=== PATIENT | female | born 1940 | race Caucasian/White ===

== ENCOUNTER 2016-09-07 14:06 | Emergency (ER) | payer MEDICARE, OTHER ==
[~2016-09-07] VITALS: Ht 154.9 cm; Wt 66.0 kg
[~2016-09-07 14:06] MED LIST: CALC-375; CHOL10009; CIPR500T4 PO; ESOM40CA PO; LORA-441; NAPR-260 PO; NORT10SO PO; OMEG-135 PO; [UNRECOGNIZED DRUG - CODE]; tribenzor PO
[2016-09-07 14:20] VITALS: Ht 154.9 cm; Wt 66.0 kg
[2016-09-07] MEDS ORDERED: ERYTOPOI BOTH EYES (14:50)
[2016-09-07] MEDS ORDERED: OSLT75C PO (14:50)
[2016-09-07] MEDS ORDERED: GUAI-637 PO (14:51)
[2016-09-07] MEDS ORDERED: ACET325T33 PO (14:51)
--- NOTE | 2016-09-07 15:40 | ERD ---
ER Documentation Chief Complaint Date/Time DATE: 09/07/16 TIME: 15:[address]GH AND [address] X1 WEEK HPI Patient is a 76-year-old female complaining of flulike symptoms for 4 days associated with dry cough, generalized body ache, sore throat and right eye pain. Patient's also states that she felt she had a fever but was not able to take her temperature. Patient denies any headache, shortness of breath, wheezing, runny nose or blurred vision. Slight discomfort upon swallowing. Patient has a history of hypercholesterolemia, migraine and prediabetes. Denies any recent sick contact. Did not take a flu shot this season ROS All systems reviewed and are negative except as per history of present illness. Medications Home Meds Active Scripts Acetaminophen* (Tylenol*) 325 Mg Tablet, 2 TAB PO Q6 Y for PAIN AND OR ELEVATED TEMP, #20 TAB Prov:SHIRA TORIBIO 09/07/16 Guaifenesin* (Robitussin*) 100 Mg/5 Ml Syrup, 100 MG PO Q4H Y for COUGH, #100 ML Prov:SHIRA TORIBIO 09/07/16 Erythromycin* (Erythromycin* Ophthalmic) 1 Applic Oint, 1 APPLIC BOTH EYES QID for 7 Days, EA Prov:SHIRA TORIBIO 09/07/16 Oseltamivir Phosphate* (Tamiflu*) 75 Mg Capsule, 75 MG PO BID for 5 Days, CAP Prov:SHIRA TORIBIO 09/07/16 Ciprofloxacin Hcl* (Ciprofloxacin Hcl*) 500 Mg Tablet, 500 MG PO BID for 7 Days , TAB Prov:SALINAS PALMER PA-C 04/17/16 Naproxen* (Naprosyn*) 500 Mg Tablet, 500 MG PO BID Y for PAIN AND/OR INFLAMMATION, #30 TAB Prov:SALINAS PALMER PA-C 04/17/16 Reported Medications Nortriptyline Hcl* (Nortriptyline Hcl*) 10 Mg/5 Ml Solution, 10 MG PO HS 04/03/13 [tribenzor] 40 MG No Conflict Check, PO DAILY 10/28/12 Esomeprazole Mag Trihydrate (Nexium) 40 Mg Capsule.dr, PO DAILY 10/28/12 Fish Oil* (Fish Oil*) 1,000 Mg Cap, PO BID 10/28/12 Multivitamins W-Iron (Multivitamin W/Iron) 1 Tab Tablet 03/15/10 Calcium Citrate/Vitamin D3 (Citracal + D Caplet) 1 Tab Tablet 03/15/10 Cholecalciferol (Vitamin D3) 1,000 Unit Capsule 03/15/10 Lorazepam* (Ativan*) 0.5 Mg Tablet 03/15/10 Allergies Allergies: Coded Allergies: No Known Drug Allergy (Verified Allergy, Unknown, 03/25/14) PMhx/Soc History of Surgery: Yes (R HIP, B SHOULDERS, SINUS, HYSTERECTOMY) Anesthesia Reaction: No Hx Neurological Disorder: No Hx Respiratory Disorders: Yes (SLEEP APNEA) Hx Cardiac Disorders: Yes (HTN, HDL) Hx Psychiatric Problems: Yes (ANXIETY) Hx Miscellaneous Medical Probl: Yes (OSTEOPOROSIS) Hx Alcohol Use: No Hx Substance Use: No Hx Tobacco Use: No Physical Exam Vitals Vital Signs Date Time Temp Pulse Resp B/P Pulse Ox O2 Delivery O2 Flow Rate FiO2 09/07/16 14:20 98.7 82 16 130/68 98 Physical Exam Physical Exam CONST: Well-developed, well-nourished, in no acute distress. Nontoxic in appearance. HEENT: Atraumatic. Erythematous conjunctiva on the right eye. EOM intact. TM intact. External ear is normal. Clear oropharnyx without erythema. No Uvular deviation. Moist mucous membranes. Supple neck. No meningismus. No submandibular induration. RESP: Clear to auscultation bilaterally. No wheezing. CARDIO: Regular rate and rhythm, no murmurs. ABD: Soft, non tender, non distended. Normal bowel sounds. No McBurney's point tenderness. No guarding or rigidity. No peritoneal signs. SKIN: No petechiae or rashes. BACK: No midline or flank tenderness. EXT: No cyanosis or edema. Distal pulses equal and bilateral. NEURO: Awake and alert, appropriate for age Procedures/[facility]M EMERGENCY DEPARTMENT COURSE/MEDICAL DECISION MAKING This is a 76-year-old female who comes to the emergency room secondary to complaints of flulike symptoms for 4 days. (dry cough, sore throat, general malaise body aches, right eye pain). Her lungs are clear and patient is afebrile upon assessment. Patient also denies having a flu shot this season. My primary diagnosis is flu-like symptoms. Secondary diagnosis are right eye conjunctivitis Differential diagnoses considered, included but not limited to pneumonia, bronchitis, upper respiratory infection, asthma, pharyngitis, peritonsillar abscess, otitis media, otitis externa. Pt is hemodynamically stable upon reassessment. The patient was discharged for outpatient management with a prescription for Tamiflu, Robitussin, Tylenol and erythromycin ophthalmic. The patient was advised to followup with their PMD in 1-2 days and to return to the Emergency Department if there are any new or worsening symptoms. The patient understood and agreed with the diagnosis, treatment and plan. Patient is stable for discharge at this time. Departure Diagnosis: Primary Impression: Flu-like symptoms Additional Impression: Conjunctivitis Conjunctivitis type: acute Acute conjunctivitis type: unspecified Laterality: right Qualified Code: H10.31 - Acute conjunctivitis of right eye , unspecified acute conjunctivitis type Condition: Stable Patient Instructions: What Is Conjunctivitis?, Influenza (Adult) Additional Instructions: Follow-up with your primary care physician in 1-2 days. Return to the emergency department immediately should you have any new or worsening symptoms, uncontrolled fevers, or other unexplained symptoms. Take all medications as directed. SHIRA TORIBIO Sep 07, 2016 15:40
== END 2016-09-08 14:00 | disposition home or self-care (01) ==
LOC: E/R 14:06
DX: R05 Cough (principal); J02.9 Acute pharyngitis, unspecified; R52 Pain, unspecified; H10.31 Unspecified acute conjunctivitis, right eye; I10 Essential (primary) hypertension
CPT/HCPCS: 99284

== ENCOUNTER 2017-04-30 14:46 | Emergency (ER) | payer MEDICARE, OTHER ==
[~2017-04-30] VITALS: Ht 152.4 cm; Wt 64.0 kg
[~2017-04-30 14:46] MED LIST changes: +ACET325T33 PO; +ERYTOPOI BOTH EYES; +GUAI-637 PO; +OSLT75C PO
[2017-04-30 14:49] VITALS: Ht 152.4 cm; Wt 64.0 kg
--- NOTE | 2017-04-30 16:11 | ERD ---
ER Documentation Chief Complaint Chief Complaint HEADACHE X 5 DAYS WITH INTERMITTENT DIZZINESS AND ELEVATED BP HPI The patient is a 77-year-old female, presenting to the ER because of intermittent headache for the last 5 days, associated with elevated blood pressure. She has similar symptoms previously, denies blurred vision, facial pain, neck pain, chest pain, dyspnea, abdominal pain, vomiting, dysuria, diarrhea. She does not smoke nor drink Past medical history: Hypertension, dyslipidemia Past surgical history: Sinus surgery ROS All systems reviewed and are negative except as per history of present illness. Medications Home Meds Active Scripts Acetaminophen* (Acetaminophen*) 650 Mg Tablet, 650 MG PO Q6H Y for PAIN AND OR ELEVATED TEMP, #30 TAB Prov:OLU AGUILAR MD 04/30/17 Acetaminophen* (Tylenol*) 325 Mg Tablet, 2 TAB PO Q6 Y for PAIN AND OR ELEVATED TEMP, #20 TAB Prov:SHIRA TORIBIO 09/07/16 Guaifenesin* (Robitussin*) 100 Mg/5 Ml Syrup, 100 MG PO Q4H Y for COUGH, #100 ML Prov:SHIRA TORIBIO 09/07/16 Erythromycin* (Erythromycin* Ophthalmic) 1 Applic Oint, 1 APPLIC BOTH EYES QID for 7 Days, EA Prov:SHIRA TORIBIO 09/07/16 Oseltamivir Phosphate* (Tamiflu*) 75 Mg Capsule, 75 MG PO BID for 5 Days, CAP Prov:SHIRA TORIBIO 09/07/16 Ciprofloxacin Hcl* (Ciprofloxacin Hcl*) 500 Mg Tablet, 500 MG PO BID for 7 Days , TAB Prov:SALINAS PALMER PA-C 04/17/16 Naproxen* (Naprosyn*) 500 Mg Tablet, 500 MG PO BID Y for PAIN AND/OR INFLAMMATION, #30 TAB Prov:SALINAS PALMER PA-C 04/17/16 Reported Medications Nortriptyline Hcl* (Nortriptyline Hcl*) 10 Mg/5 Ml Solution, 10 MG PO HS 04/03/13 [tribenzor] 40 MG No Conflict Check, PO DAILY 10/28/12 Esomeprazole Mag Trihydrate (Nexium) 40 Mg Capsule.dr, PO DAILY 10/28/12 Fish Oil* (Fish Oil*) 1,000 Mg Cap, PO BID 10/28/12 Multivitamins W-Iron (Multivitamin W/Iron) 1 Tab Tablet 03/15/10 Calcium Citrate/Vitamin D3 (Citracal + D Caplet) 1 Tab Tablet 03/15/10 Cholecalciferol (Vitamin D3) 1,000 Unit Capsule 03/15/10 Lorazepam* (Ativan*) 0.5 Mg Tablet 03/15/10 Allergies Allergies: Coded Allergies: No Known Drug Allergy (Verified Allergy, Unknown, 03/25/14) PMhx/Soc History of Surgery: Yes (R HIP, B SHOULDERS, SINUS, HYSTERECTOMY) Anesthesia Reaction: No Hx Neurological Disorder: No Hx Respiratory Disorders: Yes (SLEEP APNEA) Hx Cardiac Disorders: Yes (HTN, HDL) Hx Psychiatric Problems: Yes (ANXIETY) Hx Miscellaneous Medical Probl: Yes (OSTEOPOROSIS) Hx Alcohol Use: No Hx Substance Use: No Hx Tobacco Use: No Physical Exam Vitals Vital Signs Date Time Temp Pulse Resp B/P Pulse Ox O2 Delivery O2 Flow Rate FiO2 04/30/17 14:49 98.9 79 18 184/82 95 Physical Exam Const: No acute distress. Head: Atraumatic. Eyes: Normal Conjunctiva. ENT: Normal External Ears, Nose and Mouth. Neck: Full range of motion. No meningismus. Resp: Clear to auscultation bilaterally. Cardio: Regular rate and rhythm. Abd: Soft, non distended, normal bowel sounds, non tender. Skin: No petechiae or rashes. Back: No midline or flank tenderness. Ext: No cyanosis, or edema. Neur: Awake and alert. No focal deficit Psych: Normal Mood and Affect. Result Diagram: 04/30/17 1645 04/30/17 1645 Results 24 hrs Laboratory Tests Test 04/30/17 16:45 White Blood Count 6.310^3/ul Red Blood Count 4.5110^6/ul Hemoglobin 13.3g/dl Hematocrit 41.5% Mean Corpuscular Volume 92.0fl Mean Corpuscular Hemoglobin 29.5pg Mean Corpuscular Hemoglobin Concent 32.0g/dl Red Cell Distribution Width 13.7% Platelet Count 02112^3/UL Mean Platelet Volume 10.7fl Neutrophils % 52.5% Lymphocytes % 35.1% Monocytes % 9.9% Eosinophils % 1.8% Basophils % 0.5% Nucleated Red Blood Cells % 0.0/100WBC Neutrophils # 3.310^3/ul Lymphocytes # 2.210^3/ul Monocytes # 0.610^3/ul Eosinophils # 0.110^3/ul Basophils # 0.010^3/ul Nucleated Red Blood Cells # 0.010^3/ul Prothrombin Time 12.9Sec Prothrombin Time Ratio 1.0 INR International Normalized Ratio 0.97 Activated Partial Thromboplast Time 29.5Sec Sodium Level 143mmol/L Potassium Level 4.0mmol/L Chloride Level 107mmol/L Carbon Dioxide Level 27mmol/L Anion Gap 13 Blood Urea Nitrogen 29mg/dl Creatinine 0.78mg/dl Glucose Level 106mg/dl Calcium Level 9.1mg/dl Current Medications Medications (Trade) Dose Ordered Sig/Zahra Route PRN Reason Start Time Stop Time Status Last Admin Dose Admin Acetaminophen (Tylenol Tab) 650 mg ONCE ONCE PO 04/30/17 18:00 04/30/17 18:01 Procedures/[place] [id number] Radiology Main Line: [phone] DIAGNOSTIC IMAGING REPORT Patient: MAX CLARK : 1940 Age: 77 Sex: F MR #: [id number] DOS: 04/30/17 1612 Ordering MD: OLU AGUILAR MD Location: E/R Room/Bed: PROCEDURE: CT brain without contrast CLINICAL INDICATION: Headache TECHNIQUE: CT of the brain without contrast performed on a multidetector CT scanner, with multiplanar reformats. One or more of the following dose reduction techniques were used: Automated exposure control, adjustment in mA and / or kV according to patient size, use of iterative reconstructive technique. CTDIvol = 44 mGy; DLP = 720 mGy-cm. COMPARISON: CT brain 03/25/2014 FINDINGS: There is a chronic infarct in the right cerebellar hemisphere. No acute intracranial hemorrhage is identified. No extra-axial fluid collection is seen. There is no mass effect. No midline shift is identified. The ventricles and sulci are mildly enlarged compatible with generalized volume loss. There are mild areas of hypodensity in the periventricular - deep white matter which are nonspecific but suggestive of chronic small vessel ischemic changes. Soler-white differentiation is otherwise preserved. Atherosclerotic calcifications of the intracranial internal carotid arteries are noted. Calvarium and skull base are intact. Mastoid air cells and imaged paranasal sinuses grossly clear. IMPRESSION: 1. No evidence of acute intracranial pathology. 2. Chronic right cerebellar infarct. 3. Mild generalized volume loss, with mild chronic small vessel ischemic changes. RPTAT: VV .Sheng Aldana MD, MD Date Time Electronically viewed and signed by .Sheng Aldana MD, on 04/30/2017 16:55 .O/ CC: OLU AGUILAR MD MEDICAL MAKING DECISION: The patient is a 77-year-old female, presenting with acute cephalgia, most likely due to elevated blood pressure. She is stable emergency department. She was treated with Tylenol for headache with good response The differential diagnoses considered include but are not limited to subarachnoid hemorrhage, occult trauma, CVA, meningitis, encephalitis, hypertension, tension, migraine, cluster, narcotic withdrawal, cervical spine disease. Departure Diagnosis: Primary Impression: Headache Additional Impression: Accelerated hypertension Condition: Good Comments She was discharged with Tylenol I discussed the findings with the patient. I advised the patient to follow-up with the primary physician in about 1-2 days, sooner if needed and return if any concern. Disclaimer: Inadvertent spelling and grammatical errors are likely due to EHR/ dictation software use and do not reflect on the overall quality of patient care. Also, please note that the electronic time recorded on this note does not necessarily reflect the actual time of the patient encounter. OLU AGUILAR MD Apr 30, 2017 16:11
--- NOTE | 2017-04-30 16:55 | RADRPT ---
PROCEDURE: CT brain without contrast CLINICAL INDICATION: Headache TECHNIQUE: CT of the brain without contrast performed on a multidetector CT scanner, with multiplan ar reformats. One or more of the following dose reduction techniques were used: Automated exposure control, adjustment in mA and / or kV according to patient size, use of iterative reconstructive nicolasa hnique. CTDIvol = 44 mGy; DLP = 720 mGy-cm. COMPARISON: CT brain 03/25/2014 FINDINGS: There is a chronic infarct in the right cerebellar hemisphere. No acute intracranial hemorrhage is i dentified. No extra-axial fluid collection is seen. There is no mass effect. No midline shift is identified. The ventricles and sulci are mildly enlarged compatible with generalized volume loss. There are mild areas of hypodensity in the periventricular - deep white matter which are nonspecific but suggestive of chronic small vessel ischemic changes. Soler-white differentiation is otherwise p reserved. Atherosclerotic calcifications of the intracranial internal carotid arteries are noted. Calvarium and skull base are intact. Mastoid air cells and imaged paranasal sinuses grossly clear. IMPRESSION: 1. No evidence of acute intracranial pathology. 2. Chronic right cerebellar infarct. 3. Mild generalized volume loss, with mild chronic small vessel ischemic changes. RPTAT: VV .Sheng Aldana MD, MD Date Time Electronically viewed and signed by .Sheng Aldana MD, MD on 04/30/2017 16:55 .O/
[2017-04-30 17:06] LABS: BASOPHILS % 0.5 % (0.0-2.0); EOSINOPHILS # 0.1 10^3/ul (0.0-0.5); EOSINOPHILS % 1.8 % (0.0-7.0); HEMATOCRIT 41.5 % (37.0-47.0); HEMOGLOBIN 13.3 g/dl (12.0-16.0); LYMPHOCYTES # 2.2 10^3/ul (0.8-2.9); LYMPHOCYTES % 35.1 % (15.0-51.0); MEAN CORPUSCULAR HEMOGLOBIN 29.5 pg (29.0-33.0); MEAN PLATELET VOLUME 10.7 fl (7.4-10.4); MONOCYTE # 0.6 10^3/ul (0.3-0.9); MONOCYTES % 9.9 % (0.0-11.0); NEUTROPHIL # 3.3 10^3/ul (1.6-7.5); NEUTROPHILS % 52.5 % (39.0-77.0); PLATELET COUNT 184 10^3/UL (140-415); RED BLOOD COUNT 4.51 10^6/ul (4.20-5.40); RED CELL DISTRIBUTION WIDTH 13.7 % (11.5-14.5); WHITE BLOOD COUNT 6.3 10^3/ul (4.8-10.8)
[2017-04-30 17:32] LABS: PARTIAL THROMBOPLASTIN TIME 29.5 Sec (25.0-35.0)
[2017-04-30 17:34] LABS: INR 0.97; PROTIME 12.9 Sec (12.2-14.2)
[2017-04-30 17:40] LABS: CALCIUM 9.1 mg/dl (8.4-10.2); CREATININE 0.78 mg/dl (0.44-1.00)
[2017-04-30] MEDS ORDERED: ACET-2047 PO (17:52)
[2017-04-30] MEDS ORDERED: ACETAMINOPHEN 325 MG TAB PO ONE (18:00)
[2017-04-30 18:23] VITALS: BP 164/86; PULSE 69; RESP 22
[2017-04-30] MEDS ORDERED: PANT40TA3 PO (18:53)
[2017-04-30] MEDS ORDERED: LOSA50TA6 PO (18:56)
[2017-04-30] MEDS ORDERED: EZET10TA3 PO (18:57)
[2017-04-30] MEDS ORDERED: NIFE60TA7 PO (19:11)
[2017-04-30] MEDS ORDERED: HYDR12.58 PO (19:11)
[2017-04-30] MEDS ORDERED: ATOR20TA38 PO (19:12)
== END 2017-04-30 19:05 | disposition home or self-care (01) ==
LOC: E/R 14:46
DX: R51 Headache (principal); I10 Essential (primary) hypertension; R40.2142 Coma scale, eyes open, spontaneous, at arrival to emergency department; R40.2252 Coma scale, best verbal response, oriented, at arrival to emergency department; R40.2362 Coma scale, best motor response, obeys commands, at arrival to emergency department
CPT/HCPCS: 36415; 70450; 80048; 85025; 85610; 85730

== ENCOUNTER 2017-12-07 12:55 | Emergency (ER) | END 2017-12-07 15:35 | disposition home or self-care (01) ==

== ENCOUNTER → 2019-02-11 | Outpatient (CLI) | payer MEDICARE, OTHER ==
[~2019-02-11] MED LIST changes: +ACET-2047 PO; -ACET325T33 PO; +ATOR20TA38 PO; -CALC-375; -CHOL10009; -CIPR500T4 PO; -ERYTOPOI BOTH EYES; -ESOM40CA PO; +EZET10TA31 PO; -GUAI-637 PO; +HYDR12.58 PO; -LORA-441; +LOSA50TA14 PO; -NAPR-260 PO; +NAPR-985 PO; +NIFE60TA18 PO; -NORT10SO PO; -OMEG-135 PO; -OSLT75C PO; +PANT40TA3 PO; -[UNRECOGNIZED DRUG - CODE]; -tribenzor PO
--- NOTE | 2019-02-11 14:36 | RADRPT ---
Vent Rate: 59 bpm RR Interval: 1016 msec CA Interval: 146 msec QRS Duration: 105 msec QT Interval: 435 msec QTC Interval: 432 msec P-R-T Letcher: 65 - 59 - 57 degrees Sinus rhythm...normal P axis, V-rate 50- 99 Electronically Signed By: Troy Marc
== END | disposition home or self-care (01) ==
LOC: EKG 13:47
PROVIDERS: ATTEND Internal Medicine
DX: R07.89 Other chest pain (principal)
CPT/HCPCS: 93005